=== PATIENT | male | born 1955 | race Caucasian/White ===

== ENCOUNTER 2022-06-01 10:05 | Outpatient (CLI) | payer MEDICARE, SELFPAY ==
--- NOTE | ~2022-06-01 | CT_ITS ---
EXAMINATION:CT lung screening DATE: 06/01/2022 10:57 INDICATION: Tobacco use. Smoker who quit 3 years ago with 40 pack year history. TECHNIQUE: Computed tomography (CT) of the chest was performed without intravenous contrast. Automate d exposure control and iterative reconstruction technique were employed. The dose-length product (DLP ) was 118.44 mGy-cm. COMPARISON: None. FINDINGS: There is mild scarring at the lung apices. There is mild emphysema. There is a 4 mm nodule in right middle lobe. There is a 4 mm nodule in right middle lobe. There is a 4 mm nodule left major fissure. A calcified right lung nodule is consistent with old granulomatous disease. No pleural effus ion. The heart size is normal. There are coronary artery calcifications. No pericardial effusion. The re is mild thoracic spondylosis. IMPRESSION: 1. Lung-RADS category 2: Benign appearance or behavior. Continue annual screening with noncontrast lo w-dose chest CT in 12 months. Reviewed, dictated and finalized at location A. IMPRESSION: 1. Lung-RADS category 2: Benign appearance or behavior. Continue annual screeni ng with noncontrast low-dose chest CT in 12 months.
--- NOTE | ~2022-06-01 | US_ITS ---
EXAMINATION: US aorta [facility] DATE: 06/01/2022 10:40 INDICATION: Personal history of nicotine dependence. Abdominal aortic aneurysm screening. TECHNIQUE: Grayscale, color Doppler, and pulsed Doppler images of the aorta and common iliac arteries were obtained. COMPARISON: None. FINDINGS: The proximal aorta measures 2.6 cm AP. The mid aorta measures up to 2.2 cm. Portions of the mid to di stal aorta are obscured. The distal aorta measures 2.0 cm AP. The right common iliac artery measures 1.3 cm. The left common iliac artery measures 1.4 cm. IMPRESSION: 1. No evident aortic aneurysm. Portion of the mid to distal abdominal aorta is obscured. Reviewed, dictated and finalized at location A.
== END 2022-06-01 10:06 | disposition home or self-care (01) ==
PROVIDERS: PCP Family Medicine; Visit Provider Family Medicine
DX: Z12.2 Encounter for screening for malignant neoplasm of respiratory organs (principal); Z87.891 Personal history of nicotine dependence
CPT/HCPCS: 71271; 76706

== ENCOUNTER 2022-06-23 10:15 | Outpatient (CLI) | payer MEDICARE, SELFPAY ==
--- NOTE | 2022-06-23 10:34 | ECG_ITS ---
Measurements Intervals [place] Rate: 61 P: 60 WY: 170 QRS: 64 QRSD: 93 T: 53 QT: 374 QTc: 379 Interpretive Statements SINUS RHYTHM NORMAL ECG NO PREVIOUS ECG AVAILABLE FOR COMPARISON Electronically Signed On 06-23-2022 12:19:01 CDT by Jermeie Chairez D.O.
== END 2022-06-23 10:16 | disposition home or self-care (01) ==
LOC: ANHCARD 10:20
PROVIDERS: PCP Family Medicine; Referring Provider Physician Assistant Medical; Visit Provider Physician Assistant Medical
DX: R55 Syncope and collapse (principal)
CPT/HCPCS: 93005

== ENCOUNTER 2022-07-09 08:00 | Outpatient (CLI) | payer MEDICARE, SELFPAY ==
--- NOTE | ~2022-07-09 | CT_ITS ---
EXAMINATION: CT abdomen pelvis wo/w con DATE: 07/09/2022 08:53 INDICATION: Hematuria. TECHNIQUE: Computed tomography (CT) of the abdomen and pelvis was performed without and with 130 cc O mnipaque 350 intravenous contrast. The dose-length product was 1237.49 mGy-cm. Automated exposure con trol and iterative reconstruction technique were employed. COMPARISON: None. FINDINGS: There is a 5 mm right middle lobe nodule. There is a 4 mm right middle lobe nodule. There i s a calcified nodule in the right lower lobe, consistent with chronic granulomatous disease. Heart si ze normal. No significant pleural or pericardial effusion. No renal stones. No hydronephrosis. Heart size normal. No significant pleural or pericardial effusion . There are small hypovascular lesions of the liver, too small to characterize. Fatty infiltration of the liver. The spleen, pancreas, adrenal glands are unremarkable. There are multiple small subcentim eter hypodensities of the kidneys, most likely benign cysts. Gallbladder is present. Mild atheroscler osis. No evidence for aneurysm. No lymphadenopathy. Bladder wall is mildly thickened and trabeculated . Moderate lumbar spondylosis. No focal lytic or blastic lesions. There is osteoarthritis of the hips . IMPRESSION: 1. Mildly trabeculated thickened bladder wall anteriorly. Consider outlet obstruction and cystitis in the appropriate clinical setting. 2: Small right middle lobe nodules measuring 5 mm greatest dimension. Follow-up low dose CT chest in 12 months recommended. 3: Small hypovascular lesions of the liver and kidneys, most likely benign in the absence of known m alignancy. Reviewed, dictated and finalized at location A. IMPRESSION: 1. Mildly trabeculated thickened bladder wall anteriorly. Consider outlet obstr uction and cystitis in the appropriate clinical setting. 2: Small right middle lobe nodules measuring 5 mm greatest dimension. Follow-up low dose CT chest in 12 months recommended. 3: Small hypovascular lesions of the liver and kidneys, most likely benign in the absence of known malignancy.
[2022-07-09 08:32] LABS: Estimated Glomerular Filt Rate > 60
== END 2022-07-09 08:01 | disposition home or self-care (01) ==
PROVIDERS: PCP Family Medicine; Visit Provider Urology
DX: R31.29 Other microscopic hematuria (principal); R91.8 Other nonspecific abnormal finding of lung field
CPT/HCPCS: 74178; Q9967

== ENCOUNTER → 2023-02-22 09:53 | Outpatient (CLI) | payer MEDICARE, SELFPAY ==
--- NOTE | ~2023-02-22 | XR_ITS ---
EXAMINATION: [id number] DATE: 02/22/2023 10:07 INDICATION: Neck pain. TECHNIQUE: 4 views of cervical spine were obtained. COMPARISON: CT cervical spine 09/02/2014 FINDINGS: There is 4 degrees dextrocurvature of cervical spine. Vertebral body heights are normal. In tervertebral disc heights are normal. There is multilevel facet joint osteoarthritis, severe at sever al levels bilaterally. No central canal stenosis or prevertebral soft tissue swelling. IMPRESSION: 1. Polyarticular facet joint osteoarthritis. Reviewed, dictated and finalized at location A.
== END ==
PROVIDERS: PCP Family Medicine; Visit Provider Physician Assistant Medical
DX: M50.30 Other cervical disc degeneration, unspecified cervical region (principal)
CPT/HCPCS: 72040

== ENCOUNTER 2023-06-08 13:26 | Outpatient (CLI) | payer MEDICARE, SELFPAY ==
--- NOTE | ~2023-06-08 | CT_ITS ---
EXAMINATION: CT lung screening DATE: 06/08/2023 14:26 INDICATION: Personal history of nicotine dependence, prior smoker with 40 pack year history TECHNIQUE: Computed tomography (CT) of the chest was performed without intravenous contrast. The dose -length product (DLP) was 136.05 mGy-cm. Automated exposure control and iterative reconstruction tech E-Duction were employed. COMPARISON: 06/01/2022 FINDINGS: There is mild emphysema. There is a 4 mm nodule of the right middle lobe (image 88). There is a 4 mm nodule in the medial left upper lobe (image 42). There is a fissural lymph node of the left major fissure. The lungs are free of acute opacities. No pleural effusion or pneumothorax. No pathol ogically enlarged thoracic lymph nodes are identified. The heart size is normal. Calcified coronary a rtery atherosclerosis is noted. There is mild thoracic spondylosis. IMPRESSION: 1. Lung-RADS category 2: Benign appearance or behavior. Continue annual screening with noncontrast lo w-dose chest CT in 12 months. Reviewed, dictated and finalized at location B. IMPRESSION: 1. Lung-RADS category 2: Benign appearance or behavior. Continue annual screeni ng with noncontrast low-dose chest CT in 12 months.
== END 2023-06-08 13:27 | disposition home or self-care (01) ==
PROVIDERS: PCP Family Medicine; Visit Provider Family Medicine
DX: Z12.2 Encounter for screening for malignant neoplasm of respiratory organs (principal); Z87.891 Personal history of nicotine dependence
CPT/HCPCS: 71271

== ENCOUNTER 2024-06-12 10:44 | Outpatient (CLI) | payer MEDICARE, SELFPAY ==
--- NOTE | ~2024-06-12 | CT_ITS ---
EXAMINATION: CT lung screening DATE: 06/12/2024 10:57 INDICATION: Z87.891 - Personal history of nicotine dependence TECHNIQUE: Computed tomography (CT) of the chest was performed without intravenous contrast. Addition al 3D reconstructions utilizing coronal maximum intensity projection (MIP) were performed. Automated exposure control and iterative reconstruction technique were employed. The dose-length product was 11 6.75 mGy-cm. COMPARISON: 06/08/2023 FINDINGS: Mild emphysema with minimal biapical pleural-parenchymal scarring. Calcified right lower lobe nodule consistent with old granulomatous disease. There are also a few unchanged small scattered noncalcifie d pulmonary nodules the largest measuring 4 mm in the right middle lobe nodule on series 4, image 83 and 4 mm in the periaortic posterior medial left upper lobe. Unchanged 5 mm flat triangular satnam fiss ural lymph node along the left major fissure. No new or enlarging pulmonary nodules identified. No pn eumonia, pulmonary edema, pleural effusion or pneumothorax. Heart size is normal. Small amount of ath erosclerotic coronary artery calcification. No pericardial effusion. Thoracic aorta is normal in [place]. No pathologically enlarged thoracic lymphadenopathy. Visualized upper abdomen is unremarkable. M ild thoracic spondylosis. IMPRESSION: 1. Lung-RADS category 2: Benign appearance or behavior. Continue annual screening with noncontrast lo w-dose chest CT in 12 months. Reviewed, dictated and finalized at location B. IMPRESSION: 1. Lung-RADS category 2: Benign appearance or behavior. Continue annual screeni ng with noncontrast low-dose chest CT in 12 months.
== END 2024-06-12 10:45 | disposition home or self-care (01) ==
LOC: MICIMG 10:45
PROVIDERS: PCP Student in an Organized Health Care Education/Training Program; Visit Provider Student in an Organized Health Care Education/Training Program
DX: Z12.2 Encounter for screening for malignant neoplasm of respiratory organs (principal); Z87.891 Personal history of nicotine dependence
CPT/HCPCS: 71271

== ENCOUNTER 2024-06-13 11:29 | Outpatient (CLI) | payer MEDICARE, SELFPAY ==
--- NOTE | ~2024-06-13 | US_ITS ---
EXAMINATION: US aorta DATE: 06/13/2024 11:52 INDICATION: Encounter for screening for cardiovascular disorder TECHNIQUE: Grayscale, color Doppler, and pulsed Doppler images of the aorta and common iliac arteries were obtained. COMPARISON: None. FINDINGS: The proximal aorta measures 3.1 cm AP. The mid aorta measures 2.4 cm. The distal aorta measures 2.0 c m. The right common iliac artery measures 1.1 cm. The left common iliac artery measures 1.2 cm. IMPRESSION: 1. Normal caliber abdominal aorta. Reviewed, dictated and finalized at location B.
== END 2024-06-13 11:30 | disposition home or self-care (01) ==
LOC: MICIMG 11:31
PROVIDERS: PCP Student in an Organized Health Care Education/Training Program; Visit Provider Student in an Organized Health Care Education/Training Program
DX: Z13.6 Encounter for screening for cardiovascular disorders (principal)
CPT/HCPCS: 76775

== ENCOUNTER 2024-08-27 12:49 | Emergency (ER) | payer MEDICARE, SELFPAY ==
[2024-08-27 12:59] VITALS: BP 170/72; PULSE 60; RESP 18; TEMP 36.5; O2SAT 100
--- NOTE | 2024-08-27 13:05 | ED_ITS ---
HPI - General Adult General Chief complaint: Upper Respiratory Infection Stated complaint: cold and cough Time Seen by Provider: 08/27/24 13:05 Source: patient Mode of arrival: ambulatory Limitations: no limitations History of Present Illness HPI narrative: 69-year-old male patient presents to [facility] with complaints of a cough past 4-5 days. Denies any fevers, body aches or chills. Denies chest pain or s hortness of breath. Patient states he has had a runny nose and some congestion. Patient states just a slight intermittent his sore throat upon waking. Patient states the cough is worse when he 1st wakes up and does cough out a lot of phlegm. Denies any abdominal pain, nausea, vomiting or diarrhea. Patient states she he has been taking [id number] Robitussin which has worked really well for his symptoms. Related Data Home Medications Medication Instructions Recorded Confirmed aspirin 81 mg tablet,delayed 81 mg PO DAILY 04/11/20 08/27/24 release (Adult Low Dose Aspirin) Allergies Allergy/AdvReac Type Severity Reaction Status Date / Time ciprofloxacin Allergy Unknown Unknown Verified 08/27/24 13:07 naproxen Allergy Unknown Skin Verified 08/27/24 13:07 irritation Review of Systems Review of Systems: CONSTITUTIONAL: Denies fever, chills, or sweats. EYES: Denies visual changes, redness, or discharge. ENT: Positive rhinorrhea, congestion, denies sore throat, or otalgia. CARDIOVASCULAR: Denies chest pain, palpitations, or edema. RESPIRATORY: positive cough , denies dyspnea. GASTROINTESTINAL: Denies abdominal pain, nausea, vomiting, or diarrhea. GENITOURINARY: Denies dysuria or hematuria. SKIN: Denies rash or itching. MUSCULOSKELETAL: Denies back pain, joint pain, or myalgia. NEUROLOGIC: Denies headache, numbness, or weakness. PSYCHIATRIC: Denies anxiety or depression. [facility] Past Medical History Medical History Alcohol abuse Anxiety Benign hypertension Bronchitis Former smoker KIRTI (generalized anxiety disorder) HTN (hypertension) Hyperlipidemia Inguinal hernia Prediabetes Presence of tooth-root and mandibular implants Rheumatoid arthritis flare Surgical History Surgical History H/O lateral meniscus repair of right knee History of cataract surgery [place] teeth extracted Family History Family History Mother Family history of thyroid disease Family history of obesity Family history of hypercholesterolemia Family history of cardiovascular disease Father Diabetes mellitus Sibling Family history of cardiovascular disease Family history of liver disease Social History Social History Smoking status: Former smoker (1ppd for 40 years and quit 3.5 years. ) Second hand tobacco smoke exposure: No Smoking end date: 10/04/17 Alcohol intake: current Substance use: never Substance use type: does not use Lack of Transportation: No Lack of Food: Never True Current Housing: I Have Housing Concerned About Future Housing: No Difficulty Paying Gas/Electric Bills: No Difficulty Paying for Meds: No Currently Unemployed: No Education: Trade/Vocational Certificate Difficulty w/ Childcare or Family Care: Decline to Answer Living arrangements: with family Gender identity (if verbalized by the patient): Male Spiritual care concerns: No Agree to blood products: Yes Comments At the time of my signature I agree with nursing past medical history, surgical, social, and family history. There is no relevant family history pertinent to the presenting complaint. Exam Narrative: GENERAL: Well-appearing, well-nourished, and in no acute distress. HEAD: Normocephalic, atraumatic. EYES: PERRLA and EOMI. ENT: Nares with erythema edema noted bilaterally, no rhinorrhea or epistaxis. Mucous membranes moist. posterior pharynx with no erythema, tonsillar enlargement, exudates or lesions present. There is some postnasal drip noted to the posterior pharynx. Bilateral TMs are clear no erythema or foreign bodies the canal. NECK: Supple. No lymphadenopathy CHEST: Clear to auscultation. No respiratory distress. HEART: Regular rate and rhythm. No murmur heard. Normal peripheral pulses. ABDOMEN: Soft, nontender, nondistended, normal active bowel sounds. EXTREMITIES: Normal range of motion. No edema. SKIN: Warm, dry, no rash. NEURO: No focal deficits. Alert and oriented x3. Course Course Level of Care: Express Care Visit Vital Signs Vital signs: Vital Signs Temperature 36.5 C 08/27/24 12:59 Pulse Rate 60 08/27/24 12:59 Respiratory Rate 18 08/27/24 12:59 Blood Pressure 170/72 H 08/27/24 12:59 Pulse Oximetry 100 08/27/24 12:59 Oxygen Delivery Room Air 08/27/24 12:59 Temperature 36.5 C 08/27/24 12:59 Pulse Rate 60 08/27/24 12:59 Respiratory Rate 18 08/27/24 12:59 Blood Pressure 170/72 H 08/27/24 12:59 Pulse Oximetry 100 08/27/24 12:59 Oxygen Delivery Room Air 08/27/24 12:59 Vital signs reviewed. The patient has been informed that they may have pre-hypertension or Hypertension based on a BP reading in the department. I recommend that the patient call the primary care provider listed on their discharge instructions or a physician of their choice this week to arrange follow up for further evaluation of possible pre-hypertension or Hypertension Medical Decision Making MDM Narrative Medical decision making narrative: Discussed with patient that his lungs are nice and clear and the fact that he is not running any fevers is reassuring. Discussed with him I think this is most likely caused by sinus drainage if we can decrease the drainage the cough should improve. Discussed with patient I highly recommend taking an hgqj-zgt-aftgdop antihistamine something such as Zyrtec, Claritin or Liyah as well as an hxet-csy-larocbg nasal spray such as Flonase to help decrease the sinus drainage. I will prescribe him some Tessalon Perles to help with the cough. Patient verbalized understanding denies any other questions or concerns at this time. Differential Diagnosis Differential Diagnosis: Differential diagnosis: Allergic rhinitis, chronic sinusitis, tonsillitis, acute sinusitis, infectious mononucleosis, seasonal influenza, pertussis, diphtheria, meningococcal disease, viral syndrome, viral bronchitis, RSV, COVID- 19 Vital Signs Vital Signs: Vital Signs Temperature 36.5 C 08/27/24 12:59 Pulse Rate 60 08/27/24 12:59 Respiratory Rate 18 08/27/24 12:59 Blood Pressure 170/72 H 08/27/24 12:59 Pulse Oximetry 100 08/27/24 12:59 Oxygen Delivery Room Air 08/27/24 12:59 Temperature 36.5 C 08/27/24 12:59 Pulse Rate 60 08/27/24 12:59 Respiratory Rate 18 08/27/24 12:59 Blood Pressure 170/72 H 08/27/24 12:59 Pulse Oximetry 100 08/27/24 12:59 Oxygen Delivery Room Air 08/27/24 12:59 Critical Care Time Critical Care Time Critical Care Time: No Discharge Plan Discharge Clinical Impression: Sinusitis, Viral URI with cough Patient Disposition: Home, Self-Care Condition: Stable Instructions: Antibiotic Form, Acute Cough (ED) Additional Instructions: Viral illness may last between 7-12days; antibiotic is NOT recommended at this time. Recommend antihistamine such as Benadryl at night time and Claritin/Zyrtec/Liyah during the day take Tessalon Perles as needed for coughing. Also recommend an kvjr-lxe-uwgsxbt nasal spray such as Flonase to help decrease the sinus drainage and decrease the fluid behind the ears. Also, recommend symptomatic treatment includes: rest, fluids, and increase humidity of the air at home. Recommend Acetaminophen or nonsteroidal anti-inflammatory agents (NSAIDs) as directed in the bottle to reduce fever and/pain/headache. Avoid smoking/second-hand smoke. Limit visits to areas with large crowds. Please schedule a follow-up visit with your personal physician for further evaluation and treatment within 3-5days. Including recheck and discussion of your blood pressure. If your symptoms persist, change or worsen significantly before you can contact your personal physician then please, without delay, go to the emergency department for further evaluation. Prescriptions: New benzonatate 200 mg capsule 200 mg PO TID PRN (Reason: cough) 10 Days Qty: 30 0RF No Action aspirin [Adult Low Dose Aspirin] 81 mg tablet,delayed release (DR/EC) 81 mg PO DAILY hydrochlorothiazide 12.5 mg tablet See Rx Instructions .ROUTE .COMPLEX Qty: 90 1RF Dose Instruction: TAKE 1 TABLET BY MOUTH DAILY Rx Instructions: TAKE 1 TABLET BY MOUTH DAILY rosuvastatin 40 mg tablet 40 mg PO DAILY Qty: 90 1RF irbesartan 300 mg tablet 300 mg PO DAILY Qty: 90 3RF amlodipine 2.5 mg tablet 2.5 mg PO DAILY Qty: 90 2RF alprazolam 0.5 mg tablet 0.5 mg PO TID PRN (Reason: anxiety) Qty: 90 0RF Follow-up/Referrals: Celsa Bishop MD [Primary Care Provider] - Time of Disposition: 13:24
== END 2024-08-27 13:29 | disposition home or self-care (01) ==
PROVIDERS: Emergency Provider Nurse Practitioner Family; PCP Family Medicine
DX: J32.9 Chronic sinusitis, unspecified (principal); J06.9 Acute upper respiratory infection, unspecified; Z87.891 Personal history of nicotine dependence; I10 Essential (primary) hypertension; E78.5 Hyperlipidemia, unspecified; R73.03 Prediabetes; M06.9 Rheumatoid arthritis, unspecified; Z79.82 Long term (current) use of aspirin
CPT/HCPCS: 99213; G0463

== ENCOUNTER 2025-07-05 12:59 | Outpatient (CLI) | payer MEDICARE, SELFPAY ==
--- NOTE | ~2025-07-05 | CT_ITS ---
EXAMINATION:CT lung screening DATE: 07/05/2025 13:10 INDICATION: Personal history of nicotine dependence TECHNIQUE: Computed tomography (CT) of the chest was performed without intravenous contrast. Automated exposure control and iterative reconstruction technique were employed. The dose-length product (DLP) was 141.45 mGy-cm. COMPARISON: Chest CT 06/12/2024 FINDINGS: There is mild emphysema. There is mild scarring at the lung apices. There are a few scattered nodules in the lungs measuring up to 4 mm without change. A calcified right lung nodule is consistent with old granulomatous disease. No pleural effusion. The heart size is normal. There are coronary artery calcifications. No pericardial effusion. There is mild thoracic spondylosis. IMPRESSION: 1. Lung-RADS category 2: Benign appearance or behavior. Continue annual screening with noncontrast low-dose chest CT in 12 months. Reviewed, dictated and finalized at location E. IMPRESSION: 1. Lung-RADS category 2: Benign appearance or behavior. Continue annual screeni ng with noncontrast low-dose chest CT in 12 months.
== END 2025-07-05 13:00 | disposition home or self-care (01) ==
LOC: MICIMG 13:00
PROVIDERS: PCP Family Medicine
DX: Z12.2 Encounter for screening for malignant neoplasm of respiratory organs (principal); Z87.891 Personal history of nicotine dependence
CPT/HCPCS: 71271